=== PATIENT | female | born 1990 | race Two or more races ===

== ENCOUNTER 2018-03-10 05:48 | Emergency (ER) | payer MEDICAID ==
[~2018-03-10] VITALS: Ht 160 cm; Wt 69.4 kg
[2018-03-10 06:15] VITALS: BP 115/72
[2018-03-10] MEDS ORDERED: cefTRIAXone SOD 1,000 MG VL IM ONE (07:30)
[2018-03-10] MEDS ORDERED: LIDOCAINE 1%HCL (LOCAL ANESTH) 10 ML MDV ONE (07:59)
== END 2018-03-10 08:16 | disposition home or self-care (01) ==
LOC: ER 05:53
DX: O26.892 Other specified pregnancy related conditions, second trimester (principal); K04.7 Periapical abscess without sinus; Z3A.18 18 weeks gestation of pregnancy
CPT/HCPCS: 96372; 99283; J0696; J2001